=== PATIENT | male | born 1960 | race Caucasian/White ===

== ENCOUNTER 2020-04-27 06:44 | Day surgery (SDC) | payer BC, MEDICAID ==
[~2020-04-27] VITALS: Ht 170.2 cm; Wt 114.5 kg
[~2020-04-27 06:44] MED LIST: ADV500 IH; ALBU8HFA PO; ATOR20TA86 PO; BUME1TAB34 PO; DILT180C89 PO; FLUT16H NASAL; IPRA3AMP24 NEB; LEVO125 PO; LISI-662 PO; METF-960 PO; METO-558 PO; OMEP20 PO; RIVA20TA PO; SODIUM CHLORIDE 0.9% 1,000 ML IV ONE; SODIUM CHLORIDE 0.9% 1,000 ML ONE; UMEC62.5 PO
[2020-04-27 07:37] LABS: GLUCOMETER DEV NAME(LOC) SDS.; GLUCOSE,POINT OF CARE 148 MG/DL (70-110)
[2020-04-27] MEDS ORDERED: FentaNYL CITRATE-PF 100 MCG/2 ML VIAL ONE (08:07)
[2020-04-27] MEDS ORDERED: MIDAZOLAM HCL 2 MG/2 ML VIAL ONE (08:07)
[2020-04-27] MEDS ORDERED: MethylPREDNISolone SOD SUCC 125 MG/2 ML VIAL IVP ONE (09:00)
[2020-04-27] MEDS ORDERED: MethylPREDNISolone SOD SUCC 125 MG/2 ML VIAL ONE (09:24)
[2020-04-27] MEDS ORDERED: LIDOCAINE 4% 50 ML SOLUTION ONE (17:34)
[2020-04-27] MEDS ORDERED: ALBUTEROL SULFATE 2.5 MG/0.5 ML NEB SOLUTION NEB ONE (17:34)
[2020-04-27] MEDS ORDERED: BENZOCAINE 20% 30 ML SOLUTION ONE (17:34)
[2020-04-27] MEDS ORDERED: LIDOCAINE 2% 30 ML JELLY ONE (17:34)
[2020-04-27] MEDS ORDERED: OXYGEN THERAPY IH SCH (20:00)
== END 2020-04-27 10:35 | disposition home or self-care (01) ==
LOC: SURGERY 06:44
PROVIDERS: ATTEND Internal Medicine Critical Care Medicine
DX: J38.4 Edema of larynx (principal); B37.0 Candidal stomatitis; F17.210 Nicotine dependence, cigarettes, uncomplicated; E78.00 Pure hypercholesterolemia, unspecified; K21.9 Gastro-esophageal reflux disease without esophagitis; Z20.828 Contact with and (suspected) exposure to other viral communicable diseases
CPT/HCPCS: 31623; 31624; 71045; 82962; 87015; 87070; 87101; 87186; 87205; 87206; 87220; 87635; 88108; 88312; J2250; J2930; J3010; J7030; J7613; Z7610